=== PATIENT | male | born 1955 | race Caucasian/White ===

== ENCOUNTER → 2018-04-22 08:52 | Outpatient (CLI) | payer OTHER, SELFPAY ==
--- NOTE | 2018-04-22 | DI.US.S_ITS ---
PROCEDURE: US ABD AORTA ANEURYSM SCREEN INDICATIONS: ABDOMINAL AORTIC ANEURYSM SCREENING TECHNIQUE: Real time scanning was performed of the aorta and iliac arteries, with image documentation. COMPARISON: [facility], CT, IVP (ABD & PEL WWO CONTRAST), 07/10/2015, 9:05. FINDINGS: Aorta: Proximal aortic not well-visualized.. Mid-aorta measures 1.6 cm. Distal aortic diameter is 1.8 cm. Iliac arteries: Right common iliac artery measures 1.1 cm. Left common iliac artery measures 1.2 cm. IMPRESSION: Proximal aorta obscured by overlying bowel gas otherwise no abdominal aortic or common iliac artery aneurysm. Dictated by: Dewey Izquierdo [facility] Interpreted: Cale Betancur MD on 04/22/2018 at 9:49 Approved by: Cale Betancur M.D. on 04/22/2018 at 17:39
== END ==
PROVIDERS: PCP Internal Medicine; Visit Provider Internal Medicine
DX: Z13.6 Encounter for screening for cardiovascular disorders (principal)
CPT/HCPCS: 76706

== ENCOUNTER → 2020-07-10 18:47 | Outpatient (ROUT) | payer MEDICARE, OTHER, SELFPAY ==
[2020-07-10 19:13] LABS: Add Manual Diff / Slide Review NO; Basophils Absolute Auto 0 /uL (0-100); Basophils Percent Auto 0.1 % (0-2); Eosinophils Absolute Auto 200 /uL (0-450); Eosinophils Percent Auto 3.4 % (2-4); Hematocrit 45.1 % (41-53); Hemoglobin 15.1 g/dL (13.5-17.5); Lymphocytes Absolute Auto 1400 /uL (1100-4500); Lymphocytes Percent Auto 21.5 % (25-40); Mean Corpuscular HGB Conc 33.5 % (30-36); Mean Corpuscular Volume 92.3 fL (80-100); Monocytes Absolute Auto 500 /uL (0-900); Neutrophils Absolute Auto 4400 /uL (1500-7000); Platelet Count 217 X10^3/uL (150-400); Red Blood Cell Count 4.89 X10^6/uL (4.5-5.9); Red Cell Distribution Width 12.4 % (11.6-14.8); White Blood Cell Count 6.5 X10^3/uL (4.5-11.0)
[2020-07-10 19:19] LABS: Alanine Aminotransferase 38 IU/L (<50); Albumin 4.7 g/dL (3.5-5.0); Albumin Globulin Ratio 1.8 (1.0-2.8); Alkaline Phosphatase 73 U/L (38-126); Aspartate Aminotransferase 38 IU/L (17-59); BUN Creatinine Ratio 17.4 (6-22); Bilirubin Total 0.6 mg/dL (0.2-1.3); Blood Urea Nitrogen 19 mg/dL (9-20); Calcium 10.1 mg/dL (8.4-10.2); Carbon Dioxide 29 mmol/L (22-32); Chloride 104 mmol/L (98-107); Cholesterol 168 mg/dL (140-199); Estimated Glomerular Filt Rate > 60.0 mL/min (>60); Globulin 2.6 g/dL (1.7-4.1); Glucose 90 mg/dL (80-110); HDL Cholesterol 46 mg/dL (40-60); HEMOLYSIS < 15 (0-50); LDL Cholesterol Calculated 59 mg/dL (<100); Potassium 4.6 mmol/L (3.4-5.1); Sodium 138 mmol/L (137-145); Total Protein 7.3 g/dL (6.3-8.2); Triglycerides 317 mg/dL (35-150)
[2020-07-10 19:50] LABS: TSH w/ Reflex to FT4 1.78 uIU/mL (0.47-4.68)
== END ==
PROVIDERS: PCP Internal Medicine; Visit Provider Internal Medicine
DX: R10.11 Right upper quadrant pain (principal); E78.00 Pure hypercholesterolemia, unspecified; I25.10 Atherosclerotic heart disease of native coronary artery without angina pectoris
CPT/HCPCS: 80053; 80061; 84443; 85025

== ENCOUNTER → 2020-07-16 14:38 | Outpatient (CLI) | payer MEDICARE, OTHER, SELFPAY ==
--- NOTE | 2020-07-16 14:40 | DI.US.S_ITS ---
PROCEDURE: US ABDOMEN LIMITED INDICATIONS: RIGHT UPPER QUADRANT PAIN TECHNIQUE: Real-time focused scanning was performed of the abdomen, with image documentation. COMPARISON: [facility], , US AAA SCREENING (MEDICARE), 04/21/2019, 10:17. [facility], , US ABD AORTA ANEURYSM SCREEN, 04/22/2018, 9:19. CT, IVP (ABD & PEL WWO CONTRAST), 07/10/2015, 9:05. FINDINGS: Liver is diffusely increased in echogenicity. No focal hepatic abnormalities identified. Normal hepatic size. Normal gallbladder and no biliary dilatation seen. Pancreas is obscured by overlying bowel gas. IMPRESSION: 1. Increased hepatic echogenicity noted possibly related to hepatic steatosis but other sources of hepatocellular disease cannot be excluded. Recommend clinical correlation. 2. No source for right upper quadrant pain identified. Dictated by: Dewey Izquierdo [facility] Interpreted: Angelina Gutierrez MD on 07/16/2020 at 15:21 Approved by: Angelina Gutierrez MD, PhD on 07/16/2020 at 15:56
== END ==
PROVIDERS: PCP Internal Medicine; Referring Provider Internal Medicine; Visit Provider Internal Medicine
DX: R10.11 Right upper quadrant pain (principal)
CPT/HCPCS: 76705

== ENCOUNTER → 2023-09-08 08:04 | Outpatient (CLI) | payer MEDICARE, OTHER, SELFPAY ==
--- NOTE | 2023-09-08 08:06 | DI.MRI.S_ITS ---
PROCEDURE: MR SHOULDER RT WO CON INDICATIONS: IMPINGEMENT SYNDROME TECHNIQUE: Noncontrast oblique coronal T2 fast spin echo with fat saturation, oblique sagittal T1 spin echo and T2 fast spin echo with fat saturation, axial T1 spin echo and T2 fast spin echo with fat saturation through the shoulder. COMPARISON: None. FINDINGS: Image quality: Excellent. Rotator cuff: There is high-grade intrasubstance and articular surface tearing of the mid/anterior supraspinatus tendon at the humeral insertion site. There is a superimposed full-thickness pinhole tear of the mid supraspinatus tendon at the humeral insertion site extending to the musculotendinous junction. There is moderate grade intrasubstance and bursal surface tearing of the posterior supraspinatus and anterior infraspinatus tendon at the humeral insertion site. Low-grade intrasubstance tearing of the mid/anterior infraspinatus tendon at the humeral insertion site is present. There is low-grade articular surface tearing of the mid/inferior subscapularis tendon at the humeral insertion site extending to the musculotendinous junction. Teres minor is intact. No rotator cuff atrophy. Bones and bursae: No bone marrow contusions or fractures. Moderate acromioclavicular joint degeneration. The acromion demonstrates conventional anatomy, without an os acromiale. No pathologic subacromial-subdeltoid or subcoracoid bursal fluid is present. Capsule and soft tissues: Labrum is grossly intact The long head of the biceps tendon demonstrates normal location and morphology. The rotator interval appears normal, without fibrosis. The coracohumeral ligament is normal in thickness. IMPRESSION: 1. Partial-thickness and full-thickness tearing of the supraspinatus tendon. 2. Low-grade tearing of the subscapularis and infraspinatus tendons. 3. Acromioclavicular joint osteoarthritis. Dictated by: Alma Alexandre M.D. on 09/08/2023 at 9:46 Approved by: Alma Alexandre M.D. on 09/08/2023 at 9:58
== END ==
LOC: MRI 08:05
PROVIDERS: PCP Internal Medicine; Referring Provider Orthopaedic Surgery; Visit Provider Orthopaedic Surgery
DX: M75.121 Complete rotator cuff tear or rupture of right shoulder, not specified as traumatic (principal); M19.011 Primary osteoarthritis, right shoulder; M75.40 Impingement syndrome of unspecified shoulder
CPT/HCPCS: 73221